=== PATIENT | female | born 1945 | race Caucasian/White ===

== ENCOUNTER → 2022-10-04 | Day surgery (SDC) | payer OTHER ==
[~2022-10-04] MED LIST: ATROPINE SULF 1 MG/10 ML SYR IV ONE; FENTANYL CITR 100 MCG/2 ML ONE; FLUMAZENIL 0.1 MG/ML (5 mL VIAL) IV ONE; LIDOCAINE VISCOUS 2% SOLN 15 ML UDC ONE; METOPROLOL TARTRATE 5 MG/5 ML INJ IV ONE; MIDAZOLAM HCL 5 ML ONE; NA CHLORIDE 0.9% 500 ML ONE; PHENOL 1.4% ORAL SPRAY 180ML ONE
--- NOTE | 2022-10-05 07:01 | TEE ---
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 NORMAL LEFT VENTRICULAR EJECTION FRACTION 55-60% 2. NORMAL WALL MOTION 3. MODERATE MITRAL REGURGITATION TECHNOLOGIST: ALEXSANDER BURNETTE
== END | disposition home or self-care (01) ==
LOC: EKG 08:00
PROVIDERS: ATTEND Internal Medicine
DX: I34.0 Nonrheumatic mitral (valve) insufficiency (principal); I11.0 Hypertensive heart disease with heart failure; I50.9 Heart failure, unspecified; R00.1 Bradycardia, unspecified; E78.5 Hyperlipidemia, unspecified; Z79.82 Long term (current) use of aspirin; Z79.899 Other long term (current) drug therapy; Z88.5 Allergy status to narcotic agent
CPT/HCPCS: 93312; J2250; J7040; J0461; J3010